=== PATIENT | male | born 1960 | race Caucasian/White ===

== ENCOUNTER 2023-03-29 16:12 | Emergency (ER) | payer BC, MEDICAID ==
[~2023-03-29] VITALS: Ht 193 cm; Wt 87.6 kg
[2023-03-29 16:52] VITALS: BP 126/72; PULSE 72; RESP 18; TEMP 97.5; O2SAT 99
== END 2023-03-29 19:11 | disposition home or self-care (01) ==
LOC: ER 16:13
DX: Z00.8 Encounter for other general examination (principal); Z88.6 Allergy status to analgesic agent
CPT/HCPCS: 99281